=== PATIENT | male | born 1970 | race Caucasian/White ===

== ENCOUNTER 2016-12-09 15:37 | Emergency (ER) | payer SELFPAY ==
--- NOTE | 2016-12-09 16:14 | ED ORDER SUMMARY ---
..... Patient: JEYSON HAZEL OrderSheet [facility] VisitID: [id number] [address] [place] [address] 46y, M Registration Date/Time: 12/09/2016 ORDER SHEET Weight: 97.5 kg (stated) Allergies: NKDA GENERAL ORDERS: I&D Tray (15:54 12/09/2016 HBivens A.R.N.P.) (15:56 DDean R.N.) Dress Wounds (15:54 12/09/2016 HBivens A.R.N.P.) (15:56 DDean R.N.) MEDICATION ORDERS: Lidocaine Injection 1% plain (NOW) (15:53 12/09/2016 HBivens A.R.N.P.) (15:56 DDean R.N.) Hydrocodone-APAP PO 5/325 mg (NOW, HIGH ALERT MEDICATION) (16:42 12/09/2016 HBivens A.R.N.P.) (Ack 16:48 DDean R.N.) (17:12 DDean R.N.) IV FLUIDS: ORDER SHEET NOTES: [Electronically signed by Cindy Murillo R.N. (17:12 12/09/2016)] [Electronically signed by Sandi Colin A.R.N.P. (17:35 12/09/2016)] [Electronically locked/signed by Cindy Murillo R.N. (17:12 12/09/2016)]
--- NOTE | 2016-12-09 16:14 | ED ORDER SUMMARY ---
..... Patient: JEYSON HAZEL OrderSheet [facility] VisitID: [id number] [address] [place] [address] 46y, M Registration Date/Time: 12/09/2016 ORDER SHEET Weight: 97.5 kg (stated) Allergies: NKDA GENERAL ORDERS: I&D Tray (15:54 12/09/2016 HBivens A.R.N.P.) (15:56 DDean R.N.) Dress Wounds (15:54 12/09/2016 HBivens A.R.N.P.) (15:56 DDean R.N.) MEDICATION ORDERS: Lidocaine Injection 1% plain (NOW) (15:53 12/09/2016 HBivens A.R.N.P.) (15:56 DDean R.N.) Hydrocodone-APAP PO 5/325 mg (NOW, HIGH ALERT MEDICATION) (16:42 12/09/2016 HBivens A.R.N.P.) (Ack 16:48 DDean R.N.) (17:12 DDean R.N.) IV FLUIDS: ORDER SHEET NOTES: [Electronically signed by Cindy Murillo R.N. (17:12 12/09/2016)] [Electronically signed by Sandi Colin A.R.N.P. (17:35 12/09/2016)] [Electronically locked/signed by Cindy Murillo R.N. (17:12 12/09/2016)]
--- NOTE | 2016-12-09 16:14 | ED NURSING NOTES ---
Clinical Report - Nurses [facility] [address] [place] [address] 12/09/2016 15:38 Patient: JEYSON HAZEL TRIAGE Triage time 1542. Acuity: LEVEL 4. --15:48 Cindy Murillo R.N. 15:40 12/09/16. BP: 153/98. HR: 102. RR: 20. O2 saturation: 97% on room air. Temp: 98.7 F. Pain level now: 03/05. --15:48 Cindy Murillo R.N. Triage time 1540. Chief Complaint: SKIN LESION and TENDER AREA. --17:10 Cindy Murillo R.N. Weight: 97.5 kg stated. Height/Length: 69 inches Per Patient. BMI: 31.8. --15:47 Cindy Murillo R.N. Medications Zoloft Oral 25 mg, daily. --17:11 Cindy Murillo R.N. Allergies NKDA. --15:46 Cindy Murillo R.N. History Arrived by private vehicle. Historian: patient. Unaccompanied. Reported as located on the scalp (pt shaves head, noticed red spot on back of head about 1 week ago, getting worse.). PAST MEDICAL HX: Negative. Immunizations: (1 month ago). SURGERY HX: Cholecystectomy. SOCIAL HX: Smoker- current status unknown (chews 1/2 can a day). No alcohol use or drug use. --15:48 Cindy Murillo R.N. PROBLEMS: no known problems. Interventions ID band on patient. To treatment room. --15:48 Cindy Murillo R.N. PHYSICAL ASSESSMENT 15:40. Ambulatory to room. Patient gowned. GENERAL / NEURO / PSYCH: Alert. Appears in pain. Oriented X 4. RESPIRATORY: Respirations not labored. CVS: Capillary refill less than 2 seconds. SKIN: Skin is intact, warm and dry. Skin tenderness present. Swelling present. Increased warmth present. Erythema present. --17:10 Cindy Murillo R.N. NURSING PROGRESS NOTES 15:42. Patient gowned. Head of bed elevated. Reassurance given. Patient identifiers checked. Call light placed in reach. Side rails up. Bed placed in lowest position. Patient ready for evaluation- chart flagged. --15:48 Cindy Murillo R.N. 15:51 12/09/2016 Lidocaine * IM 1% bottle at bedside for ERNP --15:56 Cindy Murillo R.N. 16:00. I & D: Incision and Drainage of abscess performed by ATHLETIC EVENTS SCORER. The abscess is located on the scalp. Preparation: Incision and Drainage tray set up with 1% lidocaine. Procedure; cavity was irrigated with saline and packed with gauze. Sample obtained for cultures and gram stain. A dressing was applied. Post-procedure: he was stable, bleeding controlled and dressing intact. Total time of assist / procedure: 15 minutes. --17:01 Cindy Murillo R.N. 16:20. Applied clean bulky dressing consisting of adaptic and gauze, following the application of antibiotic ointment. Secured with tape. --17:02 Cindy Murillo R.N. 16:28. ( pt states that head is hurting more now, than when he arrived. ERNP notified, meds ordered and given). --17:05 Cindy Murillo R.N. 16:30. ( pt had vasal vegal episode, got dizzy, pale and sweaty when stood up. placed back on bed for 10 min---). --17:06 Cindy Murillo R.N. 16:30 12/09/16. BP: 127/86. HR: 92. RR: 18. O2 saturation: 98%. Temp: deferred. Pain level now: 05/06. --17:08 Cindy Murillo R.N. 16:45 pt states he is feeling better. skin dry. standing and bedside and denies dizziness, states he wants to go. ERNP notified. pt dc 'd. --17:08 Cindy Murillo R.N. 16:28 12/09/2016 Hydrocodone-APAP (Hydrocodone-Acetaminophen) PO 5/325 mg Tablets 1 tab given. --17:12 Cindy Murillo R.N. DISPOSITION / DISCHARGE 16:40. Condition at departure: improved and stable. No learning barriers present. Discharge instructions provided and reviewed with the patient. Reviewed medication(s) (motrin, bactrim). Reviewed wound care instructions. Patient verbalized understanding. Written instructions provided in Frisian. The patient was discharged home and accompanied by washcloth folder. He left the Emergency Department ambulatory and via private vehicle. Veterinary Laboratory Diagnostician driving. --17:00 Cindy Murillo R.N. 16:58 12/09/16. BP: 121/83. HR: 76. RR: 18. O2 saturation: 98%. Temp: deferred. Pain level now: 03/05. --17:00 Cindy Murillo R.N. Departure time: 1648. --17:09 Cindy Murillo R.N. Locked/Released at 12/09/2016 17:12 by Cindy Murillo R.N.
--- NOTE | 2016-12-09 16:14 | ED NURSING NOTES ---
Clinical Report - Nurses [facility] [address] [place] [address] 12/09/2016 15:38 Patient: JEYSON HAZEL TRIAGE Triage time 1542. Acuity: LEVEL 4. --15:48 Cindy Murillo R.N. 15:40 12/09/16. BP: 153/98. HR: 102. RR: 20. O2 saturation: 97% on room air. Temp: 98.7 F. Pain level now: 03/05. --15:48 Cindy Murillo R.N. Triage time 1540. Chief Complaint: SKIN LESION and TENDER AREA. --17:10 Cindy Murillo R.N. Weight: 97.5 kg stated. Height/Length: 69 inches Per Patient. BMI: 31.8. --15:47 Cindy Murillo R.N. Medications Zoloft Oral 25 mg, daily. --17:11 Cindy Murillo R.N. Allergies NKDA. --15:46 Cindy Murillo R.N. History Arrived by private vehicle. Historian: patient. Unaccompanied. Reported as located on the scalp (pt shaves head, noticed red spot on back of head about 1 week ago, getting worse.). PAST MEDICAL HX: Negative. Immunizations: (1 month ago). SURGERY HX: Cholecystectomy. SOCIAL HX: Smoker- current status unknown (chews 1/2 can a day). No alcohol use or drug use. --15:48 Cindy Murillo R.N. PROBLEMS: no known problems. Interventions ID band on patient. To treatment room. --15:48 Cindy Murillo R.N. PHYSICAL ASSESSMENT 15:40. Ambulatory to room. Patient gowned. GENERAL / NEURO / PSYCH: Alert. Appears in pain. Oriented X 4. RESPIRATORY: Respirations not labored. CVS: Capillary refill less than 2 seconds. SKIN: Skin is intact, warm and dry. Skin tenderness present. Swelling present. Increased warmth present. Erythema present. --17:10 Cindy Murillo R.N. NURSING PROGRESS NOTES 15:42. Patient gowned. Head of bed elevated. Reassurance given. Patient identifiers checked. Call light placed in reach. Side rails up. Bed placed in lowest position. Patient ready for evaluation- chart flagged. --15:48 Cindy Murillo R.N. 15:51 12/09/2016 Lidocaine * IM 1% bottle at bedside for ERNP --15:56 Cindy Murillo R.N. 16:00. I & D: Incision and Drainage of abscess performed by WEB GRAPHIC DESIGNER. The abscess is located on the scalp. Preparation: Incision and Drainage tray set up with 1% lidocaine. Procedure; cavity was irrigated with saline and packed with gauze. Sample obtained for cultures and gram stain. A dressing was applied. Post-procedure: he was stable, bleeding controlled and dressing intact. Total time of assist / procedure: 15 minutes. --17:01 Cindy Murillo R.N. 16:20. Applied clean bulky dressing consisting of adaptic and gauze, following the application of antibiotic ointment. Secured with tape. --17:02 Cindy Murillo R.N. 16:28. ( pt states that head is hurting more now, than when he arrived. ERNP notified, meds ordered and given). --17:05 Cindy Murillo R.N. 16:30. ( pt had vasal vegal episode, got dizzy, pale and sweaty when stood up. placed back on bed for 10 min---). --17:06 Cindy Murillo R.N. 16:30 12/09/16. BP: 127/86. HR: 92. RR: 18. O2 saturation: 98%. Temp: deferred. Pain level now: 05/06. --17:08 Cindy Murillo R.N. 16:45 pt states he is feeling better. skin dry. standing and bedside and denies dizziness, states he wants to go. ERNP notified. pt dc 'd. --17:08 Cindy Murillo R.N. 16:28 12/09/2016 Hydrocodone-APAP (Hydrocodone-Acetaminophen) PO 5/325 mg Tablets 1 tab given. --17:12 Cindy Murillo R.N. DISPOSITION / DISCHARGE 16:40. Condition at departure: improved and stable. No learning barriers present. Discharge instructions provided and reviewed with the patient. Reviewed medication(s) (motrin, bactrim). Reviewed wound care instructions. Patient verbalized understanding. Written instructions provided in Lao. The patient was discharged home and accompanied by credentialer. He left the Emergency Department ambulatory and via private vehicle. Service Writer Advisor driving. --17:00 Cindy Murillo R.N. 16:58 12/09/16. BP: 121/83. HR: 76. RR: 18. O2 saturation: 98%. Temp: deferred. Pain level now: 03/05. --17:00 Cindy Murillo R.N. Departure time: 1648. --17:09 Cindy Murillo R.N. Locked/Released at 12/09/2016 17:12 by Cindy Murillo R.N.
--- NOTE | 2016-12-09 16:14 | ED CLINICAL REPORT ---
Clinical Report - Physicians/Mid Levels [facility] [address] [place] [address] 12/09/2016 15:38 Patient: JEYSON HAZEL Time Seen: 15:41; initial patient contact, initial documentation, patient care assumed. Arrived- By private vehicle. Historian- patient. HISTORY OF PRESENT ILLNESS Chief Complaint: LESION. This started about 1 weeks ago and is still present. Not itchy. It is described as painful and burning. It has been located on the scalp. A possible cause has been identified. (got hair bump after shaving, and he kept trying to pop it, keeps getting worse, even took razor blade to it and it still got better). Similar symptoms previously: None. Recent medical care: Not recently seen/assessed. REVIEW OF SYSTEMS No fever. All systems otherwise negative, except as recorded above. PAST HISTORY Negative. SOCIAL HISTORY Smoker- current status unknown (chews). No alcohol use or drug use. No recent travel. Is a local resident. FAMILY HISTORY Negative. ADDITIONAL NOTES The nursing notes have been reviewed with agreement regarding the chief complaint, HPI, ROS, PMH and patient medications and allergies. PHYSICAL EXAM Vital Signs: 12/09/2016 15:40 BP: 153/98. HR: 102. RR: 20. O2 saturation: 97%. Temp: 98.7 F. Pain level now: 7/10. Have been reviewed as abnormal and appear to be correct. Hypertensive. Tachycardic. Respiratory rate normal. Temperature normal. Oxygen saturation normal. Appearance: Alert. Oriented X3. No acute distress. Anxious. Eyes: Pupils equal, round and reactive to light. Conjunctivae and eyelids normal. ENT: Nose normal. Neck: Neck supple. Respiratory: No respiratory distress. Skin: Skin warm and dry. Abnormal skin color. No rash. Normal skin turgor. Tender indurated area. Extremities: Normal external inspection. Extremities nontender. Neuro: Oriented X 3. No motor deficit. No sensory deficit. PROGRESS AND PROCEDURES Incision & Drainage of Abscess: The abscess is located in the scalp. The risks of the procedure, benefits and alternatives were explained. Consent was obtained. Local anesthesia provided using 1% lidocaine. Skin cleansed with Betadine. The abscess was incised with a #11 surgical blade. A moderate amount of pus was drained. Cavity was irrigated with saline and packed with gauze. Sample obtained for cultures. Estimated blood loss: 5 mL. ( probed to break up inoculates, packed with 1/4 inch iodoform packing, pt tolerated procedure well without issues). Course of Care: pt declined gown or going shirtless, advised procedure would be messy, bloody and he would get wet and possible get stained clothes. Patient counseled in person regarding the patient's stable condition and diagnosis. Differential Diagnosis: Other possible considerations: abscess, cellulitis, folliculitis, mrsa, fungus, dermatitis. Above considerations are based on history and physical exam. Differential diagnosis was discussed with patient. Disposition: Discharged home in good and improved condition (16:14). Condition: good and stable. CLINICAL IMPRESSION Single deep abscess to the head with incision and drainage. INSTRUCTIONS Warnings: GENERAL WARNINGS: Return or contact your physician immediately if your condition worsens or changes unexpectedly, if not improving as expected, or if other problems arise. Specifically return if problem worsens. Prescription Medications: Bactrim DS 800 mg / 160 mg: take 1 tablet orally every 12 hours for 10 days. No refill. Motrin 800 mg tablets: take 1 tablet orally every 8 hours as needed for pain. Dispense thirty (30). No refills. Substitution is permissible. Follow-up: Follow up with your doctor in two days as needed and for wound check and packing removal. Call for an appointment. Summary of care provided to patient. Screening today revealed the patient's blood pressure to be in the hypertensive range. The patient should follow up with a primary care provider for blood pressure management. Understanding of the discharge instructions verbalized by patient. (Electronically signed by Sandi Colin A.R.N.P. 12/09/2016 17:35)
--- NOTE | 2016-12-09 17:35 | ED DISCHARGE INSTRUCTIONS ---
Patient: JEYSON HAZEL General Instructions [facility] VisitID: [id number] [place] [address] 46y, M Registration Date/Time: 12/09/2016 Single deep abscess to the head with incision and drainage. INSTRUCTIONS Warnings: GENERAL WARNINGS: Return or contact your physician immediately if your condition worsens or changes unexpectedly, if not improving as expected, or if other problems arise. Specifically return if problem worsens. Prescription Medications: Bactrim DS 800 mg / 160 mg: take 1 tablet orally every 12 hours for 10 days. No refill. Motrin 800 mg tablets: take 1 tablet orally every 8 hours as needed for pain. Dispense thirty (30). No refills. Substitution is permissible. Follow-up: Follow up with your doctor in two days as needed and for wound check and packing removal. Call for an appointment. Summary of care provided to patient. Screening today revealed the patient's blood pressure to be in the hypertensive range. The patient should follow up with a primary care provider for blood pressure management. Understanding of the discharge instructions verbalized by patient. ADDITIONAL INFORMATION Abscess [Incision & Drainage] An abscess (sometimes called a boil) occurs when bacteria get trapped under the skin and begin to grow. Pus forms inside the abscess as the body responds to the bacteria. An abscess can occur with an insect bite, ingrown hair, blocked oil gland, pimple, cyst, or puncture wound. Treatment of your abscess has required an incision to drain the pus. If the abscess pocket was large, a gauze packing may have been inserted. This will need to be removed and possibly replaced on your next visit. Antibiotics are not required in the treatment of a simple abscess, unless the infection is spreading into the skin around the wound (known as cellulitis). Healing of the wound will take about one to two weeks depending on the size of the abscess. Healthy tissue will grow from the bottom and sides of the opening until it seals over. Home Care: The wound may drain for the first two days. Cover the wound with a clean dry dressing. If the dressing becomes soaked with blood or pus, change it. If a gauze packing was placed inside the abscess cavity, you may be advised to remove it yourself. You may do this in the shower. Once the packing is removed, you should wash the area in the shower or bath 3 to 4 times a day, until the skin opening has closed. If you were prescribed antibiotics, take them as directed until they are all gone. You may use acetaminophen (Tylenol) or ibuprofen (Motrin, Advil) to control pain, unless another pain medicine was prescribed. [ NOTE: If you have liver disease or ever had a stomach ulcer, talk with your doctor before using these medicines.] Follow Up with your doctor as advised by our staff. If a gauze packing was inserted in your wound, it should be removed in 1-2 days. Check your wound every day for the signs of worsening infection listed below. Get Prompt Medical Attention if any of the following occur: Increasing redness or swelling Red streaks in the skin leading away from the wound Increasing local pain or swelling Continued pus draining from the wound two days after treatment Fever of 100.4F (38C) or higher, or as directed by your healthcare provider Cellulitis You have an infection of the skin known as cellulitis. This usually starts with a scrape, cut, insect bite, blister or other opening in the skin which becomes infected. This is a serious condition. It must be watched closely to be sure the infection is not spreading. With antibiotic treatment, the size of the red area will gradually shrink in size until the skin returns to normal. This will take 7-10 days. The red area should never increase in size once the antibiotic medicine has been started. Occasionally, an infection will be resistant to one antibiotic and another one will have to be used. Home Care: 1) Limit the use of the affected part, since excess movement can cause the infection to spread. 2) If the infection is on your leg, walk as little as possible during the first few days of the treatment. Keep your leg elevated while sitting. This will reduce swelling. 3) Take all of the antibiotic medicine exactly as directed until it is gone. Be careful not to miss any doses, especially during the first seven days. Follow Up with your doctor or this facility as directed. Check the infected area daily for the warning signs listed below. Get Prompt Medical Attention if any of the following occur: -- Spreading area of redness -- Increasing swelling or pain -- Appearance of pus or drainage -- Fever over 100.4 F (38.0 C) oral, or over 101.4 F (38.6 C) rectal, after two days on antibiotics Staph Infection (MRSA) "Staph" is the short name for the common bacteria called "staphylococcus aureus". Staph bacteria are often present on the skin without causing an infection. If it gets under the skin an infection occurs. This causes redness, tenderness, swelling and sometimes fluid drainage. MRSA stands for "Methicillin-Resistant Staph Aureus". Unlike a common staph infection, MRSA bacteria are resistant to the usual antibiotics and harder to treat. Also, MRSA is more toxic than common staph bacteria. It can spread quickly throughout the body and cause a life-threatening illness. MRSA is spread to others by direct physical contact with the bacteria. MRSA can also be transmitted from items contaminated by a person who has the bacteria, such as bandages, towels, bed sheets, or sports equipment. It is not spread through the air. Once you have a MRSA skin infection, you are at risk of having it recur in the future. If MRSA infection is suspected, the doctor may take a wound culture to confirm the diagnosis. Any abscess will be drained. One or sometimes two antibiotics that work against MRSA will be prescribed. Home Care: 1) Take any antibiotics prescribed exactly as directed until they are gone. 2) Follow the same washing procedures as outlined for Household Members below. 3) Keep draining wounds covered with clean, dry bandages. Change dressings as they become soiled. 4) You and those in contact with you should wash their hands frequently with soap and warm water or use an alcohol-based hand application specialist. Do this after each time you change the bandage or touch the wound. 5) Avoid sharing personal items such as towels, washcloths, razors, clothing, or uniforms. Wash soiled sheets, towels or clothes in hot water with laundry detergent. Use an automatic clothes dryer set on high to kill any remaining bacteria. 6) Remove any artificial nails and nail mexican. 7) If you use a gym, wipe down equipment before and after each use. Treatment Of Household Members If you have been diagnosed with possible MRSA infection, those living with you are at higher risk of carrying the bacteria on their skin or in their nose, even if there is no sign of infection. Bacteria must be removed from the skin of all household members (including you) at the same time, so that it is not passed back and forth. Advise them to remove the bacteria as follows: Wash your whole body (scalp to toes) daily for five days with Hibiclens (chlorhexidine). Scrub fingernails with a brush for one minute twice a day. If any skin infections are present (boils, abscess, infected cut) these must be treated by a doctor. Washing alone will not treat a MRSA infection. Clean counter tops and children's toys; do not share personal items such as toothbrush and razors. It is okay to share glasses, plates, utensils. If antibiotic ointment was prescribed use it as directed. Follow Up with your doctor or as advised by our staff. If a wound culture was taken, call as directed in two days to obtain the results. If the culture result is positive for MRSA, tell medical personnel in the future that you were treated for this type of infection. Get Prompt Medical Attention if any of the following occur: -- Increasing redness, swelling or pain -- Red streaks in the skin around the wound -- Weakness or dizziness -- New appearance of pus or drainage from the wound -- New fever over 100.4 F (38.0 C) Sulfamethoxazole, Trimethoprim Oral tablet What is this medicine? SULFAMETHOXAZOLE; TRIMETHOPRIM or SMX-TMP (suhl fuh meth OK brenda zohl; trye METH oh prim) is a combination of a sulfonamide antibiotic and a second antibiotic, trimethoprim. It is used to treat or prevent certain kinds of bacterial infections. It will not work for colds, flu, or other viral infections. How should I use this medicine? Take this medicine by mouth with a full glass of water. Follow the directions on the prescription label. Take your medicine at regular intervals. Do not take it more often than directed. Do not skip doses or stop your medicine early. Talk to your director part regarding the use of this medicine in children. Special care may be needed. This medicine has been used in children as young as 2 months of age. What side effects may I notice from receiving this medicine? Side effects that you should report to your doctor or health college and career counselor as soon as possible: allergic reactions like skin rash or hives, swelling of the face, lips, or tongue breathing problems fever or chills, sore throat irregular heartbeat, chest pain joint or muscle pain pain or difficulty passing urine red pinpoint spots on skin redness, blistering, peeling or loosening of the skin, including inside the mouth unusual bleeding or bruising unusually weak or tired yellowing of the eyes or skin Side effects that usually do not require medical attention (report to your doctor or health college and career counselor if they continue or are bothersome): diarrhea dizziness headache loss of appetite nausea, vomiting nervousness What may interact with this medicine? Do not take this medicine with any of the following medications: aminobenzoate potassium dofetilide metronidazole This medicine may also interact with the following medications: KIMBERLEY inhibitors like benazepril, enalapril, lisinopril, and ramipril cyclosporine digoxin diuretics indomethacin medicines for diabetes methenamine methotrexate phenytoin potassium supplements pyrimethamine sulfinpyrazone tricyclic antidepressants warfarin What if I miss a dose? If you miss a dose, take it as soon as you can. If it is almost time for your next dose, take only that dose. Do not take double or extra doses. Where should I keep my medicine? Keep out of the reach of children. Store at room temperature between 20 to 25 degrees C (68 to 77 degrees F). Protect from light. Throw away any unused medicine after the expiration date. What should I tell my health care provider before I take this medicine? They need to know if you have any of these conditions: anemia asthma being treated with anticonvulsants if you frequently drink alcohol containing drinks kidney disease liver disease low level of folic acid or [id number] dehydrogenase poor nutrition or malabsorption porphyria severe allergies thyroid disorder an unusual or allergic reaction to sulfamethoxazole, trimethoprim, sulfa drugs, other medicines, foods, dyes, or preservatives or trying to get breast-feeding What should I watch for while using this medicine? Tell your doctor or health college and career counselor if your symptoms do not improve. Drink several glasses of water a day to reduce the risk of kidney problems. Do not treat diarrhea with over the counter products. Contact your doctor if you have diarrhea that lasts more than 2 days or if it is severe and watery. This medicine can make you more sensitive to the sun. Keep out of the sun. If you cannot avoid being in the sun, wear protective clothing and use a sunscreen. Do not use sun lamps or tanning beds/booths. Ibuprofen Oral tablet What is this medicine? IBUPROFEN (eye BYOO proe fen) is a non-steroidal anti-inflammatory drug (NSAID). It is used for dental pain, fever, headaches or migraines, osteoarthritis, rheumatoid arthritis, or painful monthly periods. It can also relieve minor aches and pains caused by a cold, flu, or sore throat. How should I use this medicine? Take this medicine by mouth with a glass of water. Follow the directions on the prescription label. Take this medicine with food if your stomach gets upset. Try to not lie down for at least 10 minutes after you take the medicine. Take your medicine at regular intervals. Do not take your medicine more often than directed. A special MedGuide will be given to you by the pharmacist with each prescription and refill. Be sure to read this information carefully each time. Talk to your director part regarding the use of this medicine in children. Special care may be needed. What side effects may I notice from receiving this medicine? Side effects that you should report to your doctor or health college and career counselor as soon as possible: allergic reactions like skin rash, itching or hives, swelling of the face, lips, or tongue black or bloody stools, blood in the urine or in vomit breathing problems changes in vision chest pain general ill feeling or flu-like symptoms nausea or vomiting redness, blistering, peeling or loosening of the skin, including inside the mouth slurred speech or weakness on one side of the body stomach pain unexplained weight gain or swelling unusually weak or tired yellowing of eyes or skin Side effects that usually do not require medical attention (report to your doctor or health college and career counselor if they continue or are bothersome): constipation or diarrhea dizziness gas or heartburn stomach upset What may interact with this medicine? Do not take this medicine with any of the following medications: cidofovir ketorolac methotrexate pemetrexed This medicine may also interact with the following medications: alcohol aspirin diuretics lithium other drugs for inflammation like prednisone warfarin What if I miss a dose? If you miss a dose, take it as soon as you can. If it is almost time for your next dose, take only that dose. Do not take double or extra doses. Where should I keep my medicine? Keep out of the reach of children. Store at room temperature between 15 and 30 degrees C (59 and 86 degrees F). Keep container tightly closed. Throw away any unused medicine after the expiration date. What should I tell my health care provider before I take this medicine? They need to know if you have any of these conditions: asthma cigarette smoker drink more than 3 alcohol containing drinks a day heart disease or circulation problems such as heart failure or leg edema (fluid retention) high blood pressure kidney disease liver disease stomach bleeding or ulcers an unusual or allergic reaction to ibuprofen, aspirin, other NSAIDS, other medicines, foods, dyes, or preservatives or trying to get breast-feeding What should I watch for while using this medicine? Tell your doctor or healthcare professional if your symptoms do not start to get better or if they get worse. This medicine does not prevent heart attack or stroke. In fact, this medicine may increase the chance of a heart attack or stroke. The chance may increase with longer use of this medicine and in people who have heart disease. If you take aspirin to prevent heart attack or stroke, talk with your doctor or health college and career counselor. Do not take other medicines that contain aspirin, ibuprofen, or naproxen with this medicine. Side effects such as stomach upset, nausea, or ulcers may be more likely to occur. Many medicines available without a prescription should not be taken with this medicine. This medicine can cause ulcers and bleeding in the stomach and intestines at any time during treatment. Ulcers and bleeding can happen without warning symptoms and can cause . To reduce your risk, do not smoke cigarettes or drink alcohol while you are taking this medicine. You may get drowsy or dizzy. Do not drive, use machinery, or do anything that needs mental alertness until you know how this medicine affects you. Do not stand or sit up quickly, especially if you are an older patient. This reduces the risk of dizzy or fainting spells. This medicine can cause you to bleed more easily. Try to avoid damage to your teeth and gums when you brush or floss your teeth. You have been given the following additional information: Abscess, Incision And Drainage Cellulitis MRSA Skin Infection, Suspected Or Confirmed Sulfamethoxazole, Trimethoprim Oral tablet Ibuprofen Oral tablet (Electronically signed by Sandi Colin A.R.N.P. 12/09/2016 17:35)
--- NOTE | 2016-12-09 17:35 | ED MAR SUMMARY ---
..... Medication Administration Record [facility] [address] [place] [address] Patient: JEYSON HAZEL Visit ID: [id number] 46y, M Weight: 97.5 kg Height/Length: 69 in BMI: 31.8 ALLERGIES: NKDA Given 15:51 12/09/2016 Cindy Murillo R.N. Medication Administered: Lidocaine *, Dose: 1% * IM. Medication Ordered: Lidocaine Injection 1% plain (NOW). Given 16:28 12/09/2016 Cindy Murillo RLizzN. Medication Administered: HYDROCODONE-APAP [PO] (HYDROCODONE-ACETAMINOPHEN), Dose: 1 tab 5/325 mg Tablets PO. Medication Ordered: Hydrocodone-APAP PO 5/325 mg (NOW, HIGH ALERT MEDICATION).
--- NOTE | 2016-12-09 17:35 | ED MED RECONCILIATION SUMMARY ---
Patient: JEYSON HAZEL Medication Reconciliation Report [facility] VisitID: [id number] [address] [place] [address] 46y, M Registration Date/Time: 12/09/2016 Weight: 97.5 kg Height/Length: 69 in. BMI: 31.8 ALLERGIES: NKDA The patient's Home Medications are listed below: THE FOLLOWING MEDICATIONS NEED TO BE RECONCILED: Zoloft Oral 25 mg, daily The source(s) of the original Home Medication information: Not obtained. The following Medications were given to the patient in the Emergency Department: Lidocaine IM 1%, administered: 12/09/2016 3:51:00 PM Hydrocodone-APAP [PO] PO 1 tab, administered: 12/09/2016 4:28:00 PM The following Medications were prescribed to the patient: Bactrim DS 800 mg / 160 mg: take 1 tablet orally every 12 hours for 10 days. No refill. -- Sandi Colin A.R.N.P. Motrin 800 mg tablets: take 1 tablet orally every 8 hours as needed for pain. Dispense thirty (30). No refills. Substitution is permissible. -- Sandi Colin A.R.N.P.
--- NOTE | 2016-12-09 17:35 | ED MAR SUMMARY ---
..... Medication Administration Record [facility] [address] [place] [address] Patient: JEYSON HAZEL Visit ID: [id number] 46y, M Weight: 97.5 kg Height/Length: 69 in BMI: 31.8 ALLERGIES: NKDA Given 15:51 12/09/2016 Cindy Murillo R.N. Medication Administered: Lidocaine *, Dose: 1% * IM. Medication Ordered: Lidocaine Injection 1% plain (NOW). Given 16:28 12/09/2016 Cindy Murillo RLizzN. Medication Administered: HYDROCODONE-APAP [PO] (HYDROCODONE-ACETAMINOPHEN), Dose: 1 tab 5/325 mg Tablets PO. Medication Ordered: Hydrocodone-APAP PO 5/325 mg (NOW, HIGH ALERT MEDICATION).
--- NOTE | 2016-12-09 17:35 | ED MED RECONCILIATION SUMMARY ---
Patient: JEYSON HAZEL Medication Reconciliation Report [facility] VisitID: [id number] [address] [place] [address] 46y, M Registration Date/Time: 12/09/2016 Weight: 97.5 kg Height/Length: 69 in. BMI: 31.8 ALLERGIES: NKDA The patient's Home Medications are listed below: THE FOLLOWING MEDICATIONS NEED TO BE RECONCILED: Zoloft Oral 25 mg, daily The source(s) of the original Home Medication information: Not obtained. The following Medications were given to the patient in the Emergency Department: Lidocaine IM 1%, administered: 12/09/2016 3:51:00 PM Hydrocodone-APAP [PO] PO 1 tab, administered: 12/09/2016 4:28:00 PM The following Medications were prescribed to the patient: Bactrim DS 800 mg / 160 mg: take 1 tablet orally every 12 hours for 10 days. No refill. -- Sandi Colni A.R.N.P. Motrin 800 mg tablets: take 1 tablet orally every 8 hours as needed for pain. Dispense thirty (30). No refills. Substitution is permissible. -- Sandi Colin A.R.N.P.
== END 2016-12-09 16:48 | disposition home or self-care (01) ==
LOC: ED SRH 15:37
DX: L02.811 Cutaneous abscess of head [any part, except face] (principal)